=== PATIENT | female | born 2000 | race Hispanic/Latino ===

== ENCOUNTER 2018-04-21 14:45 | Emergency (ER) | payer BC ==
[~2018-04-21] VITALS: Ht 167.6 cm; Wt 99.8 kg
--- NOTE | 2018-04-21 16:31 | Diagnostic Imaging Report ---
EXAMINATION: CXR 2 VIEW - HOPD INDICATION: Shortness of breath. COMPARISON: None FINDINGS: TUBES and LINES: None. LUNGS: Lungs are well inflated. Lungs are clear. There is no evidence of pneumonia or pulmonary edema. PLEURA: No pleural effusion or pneumothorax. HEART AND MEDIASTINUM: The cardiomediastinal silhouette is unremarkable. BONES AND SOFT TISSUES: No acute osseous lesion. Soft tissues are unremarkable. UPPER ABDOMEN: No free air under the diaphragm. IMPRESSION: No acute thoracic abnormality. Signed by: Dr. Wilder Hwang M.D. on 04/21/2018 4:27 PM
== END 2018-04-21 17:00 | disposition home or self-care (01) ==
LOC: FSED 14:45
DX: R07.89 Other chest pain (principal); R00.2 Palpitations; F41.1 Generalized anxiety disorder
CPT/HCPCS: 36415; 71046; 80053; 80307; 82553; 84443; 84484; 85025; 93005; 99283

== ENCOUNTER 2018-11-02 13:34 | Emergency (ER) | payer BC ==
[~2018-11-02] VITALS: Ht 167.6 cm; Wt 99.8 kg
--- OUTSIDE RECORDS SUMMARY | 2018-11-02 13:37 | XMS REPORT ---
Author Author [facility] Address Unknown Phone Unavailable Care Team Providers [employer] Name Role Phone Hayden DAWSON Unavailable Unavailable Problems This patient has no known problems. Allergies, Adverse Reactions, Alerts This patient has no known allergies or adverse reactions. Medications This patient has no known medications. Results Test Description Test Time Test Comments Text Results Atomic Results Result Comments CXR 2 VIEW - HOPD 2018-04-21 16:26:00 [place] [address] Patient Name: MARLENE SWIFT MR #: [id number] : 2000 Age/Sex: 18/F Req #: [id number] Adm Physician: Ordered by: THUY DAWSON MD Report #: [id number] Location: [facility] Room/Bed: Procedure: [id number] HOPD/CXR 2 VIEW - HOPD Exam Date: Exam Time: REPORT STATUS: Signed EXAMINATION: CXR 2 VIEW - HOPD INDICATION: Shortness of breath. COMPARISON: None FINDINGS: TUBES and LINES: None. LUNGS: Lungs are well inflated. Lungs are clear. There is no evidence of pneumonia or pulmonary edema. PLEURA: No pleural effusion or pneumothorax. HEART AND MEDIASTINUM: The cardiomediastinal silhouette is unremarkable. BONES AND SOFT TISSUES: No acute osseous lesion. Soft tissues are unremarkable. UPPER ABDOMEN: No free air under the diaphragm. IMPRESSION: No acute thoracic abnormality. Signed by: Dr. Shanna Hwang M.D. on 04/21/2018 4:27 PM Dictated By: SHANNA HWANG MD 26 Transcribed By: JOVANA on 04/21/181626 COPY TO: THUY DAWSON MD
[2018-11-02] MEDS ORDERED: SODIUM CHLORIDE 0.9% 1000ML 1,000 ML IV STA (13:53)
[2018-11-02] MEDS ORDERED: ONDANSETRON HCL INJ 2MG/ML 2ML 2 MG/ML VIAL IV STA (13:53)
[2018-11-02] MEDS ORDERED: KETOROLAC TROMETHAMINE 30 MG/ML VIAL IV ONE (14:00)
[2018-11-02] MEDS ORDERED: ACETAMINOPHEN 325 MG TAB PO ONE (14:00)
--- NOTE | 2018-11-02 15:23 | Diagnostic Imaging Report ---
Exam: Head CT without contrast History: Dizziness, lightheadedness Comparison studies: None Technique: Axial images were obtained from the skull base to the vertex. Coronal and sagittal images reconstructed from the axial data. Dose modulation, iterative reconstruction, and/or weight based adjustment of the mA/kV was utilized to reduce the radiation dose to as low as reasonably achievable. Radiation dose: Total DLP: 969 mGy*cm. Estimated effective dose: DLP x 0.015 Intravenous contrast: None Findings: Scalp: No abnormalities. Bones: No fractures, blastic or lytic lesions. Brain sulci: Appropriate for age. Ventricles: Normal in size and configuration. No hydrocephalus. Extra-axial spaces: No masses, no fluid collection. Parenchyma: No abnormal densities. No masses, hemorrhage, acute or chronic vascular insults. Sellar/suprasellar region: No abnormalities. Craniocervical junction: Patent foramen magnum. No Chiari one malformation. IMPRESSION: No acute intracranial abnormalities. Signed by: Dr. Nikunj Fuchs M.D. on 11/02/2018 3:19 PM
== END 2018-11-02 16:13 | disposition home or self-care (01) ==
LOC: FSED 13:34
DX: G44.219 Episodic tension-type headache, not intractable (principal)
CPT/HCPCS: 70450; 80053; 81003; 81025; 85025; 99284; J1885; J2405; J7030

== ENCOUNTER 2019-01-02 23:25 | Emergency (ER) | payer BC ==
[~2019-01-02] VITALS: Ht 167.6 cm; Wt 104.3 kg
[2019-01-03] MEDS ORDERED: NAPROSYN500 MG PO (00:22)
--- NOTE | 2019-01-03 00:33 | Diagnostic Imaging Report ---
EXAMINATION: CXR 2 VIEW - HOPD INDICATION: Left upper quadrant pain with shortness of breath COMPARISON: Chest x-ray 04/21/2018 FINDINGS: PA and lateral views TUBES and LINES: None. LUNGS: Lungs are well inflated. There is no evidence of pneumonia or pulmonary edema. PLEURA: No pleural effusion or pneumothorax. HEART AND MEDIASTINUM: The cardiomediastinal silhouette is unremarkable.. BONES AND SOFT TISSUES: No focal osseous lesions. Soft tissues are unremarkable. UPPER ABDOMEN: No free air under the diaphragm. IMPRESSION: No acute thoracic abnormality. Signed by: Dr. Mac Irvin MD on 01/03/2019 12:30 AM
== END 2019-01-03 00:50 | disposition home or self-care (01) ==
LOC: FSED 23:25
DX: R06.09 Other forms of dyspnea (principal); R09.1 Pleurisy; R10.12 Left upper quadrant pain; I10 Essential (primary) hypertension
CPT/HCPCS: 71046; 80053; 81003; 81025; 85025; 85379; 93005; 99283

== ENCOUNTER 2019-06-10 11:46 | Emergency (ER) | payer BC ==
[~2019-06-10] VITALS: Ht 167.6 cm; Wt 104.3 kg
[~2019-06-10 11:46] MED LIST: NAPROSYN500 MG PO
[2019-06-10] MEDS ORDERED: ACETAMINOPHEN 325 MG TAB ONE (12:00)
[2019-06-10] MEDS ORDERED: ACETAMINOPHEN 325 MG TAB PO ONE (12:30)
== END 2019-06-10 12:22 | disposition home or self-care (01) ==
LOC: FSED 11:46
DX: R50.9 Fever, unspecified (principal); J11.1 Influenza due to unidentified influenza virus with other respiratory manifestations
CPT/HCPCS: 87400; 99283

== ENCOUNTER 2020-07-25 02:06 | Emergency (ER) | payer SELFPAY ==
[~2020-07-25] VITALS: Ht 167.6 cm; Wt 113.4 kg
[2020-07-25] MEDS ORDERED: TETANUS/DIPHTHERIA TOX ADULT 0.5 ML SYR IM ONE (02:30)
[2020-07-25] MEDS ORDERED: MOTRIN800 MG PO (02:36)
[2020-07-25] MEDS ORDERED: IBUPROFEN 400 MG TAB ONE (02:38)
[2020-07-25] MEDS ORDERED: TETANUS/DIPHTHERIA TOX ADULT 0.5 ML SYR ONE (02:38)
[2020-07-25] MEDS ORDERED: IBUPROFEN 400 MG TAB PO STA (02:38)
[2020-07-25 02:45] VITALS: BP 122/76
== END 2020-07-25 02:45 | disposition home or self-care (01) ==
LOC: FSED 02:30
DX: S01.81XA Laceration without foreign body of other part of head, initial encounter (principal); W01.198A Fall on same level from slipping, tripping and stumbling with subsequent striking against other object, initial encounter; Y92.008 Other place in unspecified non-institutional (private) residence as the place of occurrence of the external cause
CPT/HCPCS: 90714; 99282